=== PATIENT | male | born 1940 | race Caucasian/White ===

== ENCOUNTER → 2017-02-04 | Outpatient (CLI) | payer MEDICARE, BC ==
[~2017-02-04] MED LIST: ASPI81CH PO; ASPI81EC; ASPI81EC PO; CYAN1000 PO; DIGO.125 PO; DOCU100 PO; ERGO50000 PO; EZET10; EZET10 PO; FURO40 PO; GEMF600 PO; HYDACE5 PO; LISI5; METO25ER PO; METO50 PO; METO50ER; MULVIT PO; POTCHL20ER PO; PROBIOTIC; STOOL SOFTENER 100MG; TAMS.4ER; WARF10 PO; WARF5; WARF5 PO; WARF7.5; WARF7.5 PO
== END | disposition home or self-care (01) ==
LOC: PLD 08:33 → LAB SHORT 08:33
DX: D48.5 Neoplasm of uncertain behavior of skin (principal)
CPT/HCPCS: 88305

== ENCOUNTER → 2017-08-17 | Outpatient (CLI) | payer MEDICARE, BC | END | disposition home or self-care (01) | LOC: LAB SHORT 11:21 → PLD 11:21 | DX: D22.61 Melanocytic nevi of right upper limb, including shoulder (principal) | CPT/HCPCS: 88305 ==